=== PATIENT | female | born 1980 | race Caucasian/White ===

== ENCOUNTER 2017-05-27 16:09 | Emergency (ER) | payer MEDICAID ==
[2017-05-27] MEDS ORDERED: Sodium Chloride 0.9% 10 ML Syringe FLUSH PRN (16:35)
[2017-05-27] MEDS ORDERED: Ondansetron 4 MG/2 ML SDV IVPUSH ONE (16:35)
[2017-05-27] MEDS ORDERED: Morphine 2 MG/ML Syringe IVPUSH ONE ×2 (16:35→17:47)
--- NOTE | 2017-05-27 16:44 | EDM.PDOC ---
ED HPI GENERAL MEDICAL PROBLEM - General Time Seen by Provider: 05/27/17 16:20 Source of Information: Reports: Patient History Limitations: Reports: No Limitations - History of Present Illness INITIAL COMMENTS - FREE TEXT/NARRATIVE: Patient comes in the emergency department with a one-day history of severe onset of right lower flank pain radiating around to the front of the abdominal cavity. Patient also having urinary hesitancy and retention with some nausea. Patient does have a significant history of kidney stones and this feels like a kidney stone that she's had in the past. Symptoms are very similar. Denies any fever, chest pain, shortness of breath, incontinence, or any issues with bowel movements. Onset: Sudden Right Flank Pain Score (Numeric/FACES): 8 - Related Data Allergies Allergy/AdvReac Type Severity Reaction Status Date / Time ketorolac tromethamine Allergy Hives Verified 05/27/17 17:10 [From Toradol] naproxen Allergy Hives Verified 05/27/17 17:10 NSAIDS (Non-Steroidal Allergy Hives Verified 05/27/17 17:10 Anti-Inflamma Home Meds: Home Meds Acetaminophen/HYDROcodone [[place] 325-5 MG] 1 - 2 tab PO Q6H PRN #20 tab [Rx] Ondansetron [Zofran ODT] 4 mg PO Q6H PRN #4 tab.dis 10/01/13 [Rx] Penicillin V Potassium 500 mg PO Q6HR #40 tab 10/01/13 [Rx] Lidocaine HCl [Lidocaine HCl Viscous] 20 mg MM ASDIRECTED PRN #100 ml 10/03/13 [ Rx] Ondansetron [Zofran ODT] 4 mg PO Q6H PRN #10 tab.dis 10/03/13 [Rx] Ondansetron [Zofran ODT] 4 mg PO Q6H PRN #4 tab.dis 10/03/13 [Rx] oxyCODONE HCl/Acetaminophen [Percocet 5-325 mg Tablet] 1 each PO Q4HR PRN #20 tablet 10/03/13 [Rx] oxyCODONE HCl/Acetaminophen [Percocet 5-325 mg Tablet] 1 each PO Q4HR PRN #5 tablet 10/03/13 [Rx] Acetaminophen/oxyCODONE [Percocet 325-5 MG] 1 each PO Q6HR #4 tab 05/27/17 [Rx] Tamsulosin HCl [Flomax] 0.4 mg PO DAILY 5 Days #5 cap.er.24h 05/27/17 [Rx] Tamsulosin [Tamsulosin 24 Hr] 0.4 mg PO DAILY #1 cap.er 05/27/17 [Rx] oxyCODONE HCl/Acetaminophen [Percocet 10-325 mg Tablet] 1 each PO Q4H PRN 4 Days #15 tablet 05/27/17 [Rx] Social & Family History - Tobacco Use Years of Tobacco use: 5 - Alcohol Use Days Per Week of Alcohol Use: 0 - Recreational Drug Use Recreational Drug Use: No ED ROS GENERAL - Review of Systems Review Of Systems: See Below Constitutional: Reports: No Symptoms HEENT: Reports: No Symptoms Respiratory: Reports: No Symptoms Cardiovascular: Reports: No Symptoms GI/Abdominal: Reports: No Symptoms : Reports: Flank Pain, Hematuria, Pain Musculoskeletal: Reports: No Symptoms Skin: Reports: No Symptoms Neurological: Reports: No Symptoms Psychiatric: Reports: No Symptoms Hematologic/Lymphatic: Reports: No Symptoms Immunologic: Reports: No Symptoms ED EXAM, GI/ABD - Physical Exam Exam: See Below Exam Limited By: No Limitations General Appearance: Alert, WD/WN, No Apparent Distress Head: Atraumatic, Normocephalic Neck: Normal Inspection Respiratory/Chest: No Respiratory Distress, Lungs Clear, Normal Breath Sounds, Chest Non-Tender Cardiovascular: Normal Peripheral Pulses GI/Abdominal Exam: Normal Bowel Sounds, Soft, Non-Tender, No Distention, No Abnormal Bruit (Female) Exam: Normal External Exam Back Exam: Other (right flank pain ) Extremities: Normal Inspection, Normal Range of Motion Neurological: Alert, Oriented, Normal Gait Psychiatric: Normal Affect, Normal Mood Skin Exam: Warm, Dry, Intact, Normal Color Course - Vital Signs Last Recorded V/S: Last Vital Signs Temp 36.1 C 05/27/17 16:40 Pulse 94 05/27/17 18:30 Resp 18 05/27/17 18:30 BP 101/41 L 05/27/17 18:30 Pulse Ox 95 05/27/17 18:30 - Orders/Labs/Meds Orders: Active Orders 24 hr Category Date Time Status Abdomen wo Cont [CT] Stat Exams 05/27/17 16:36 Taken UA W/MICROSCOPIC [URIN] Stat Lab 05/27/17 17:02 Ordered Sodium Chloride 0.9% [Saline Flush] Med 05/27/17 16:35 Active 10 ml FLUSH ASDIRECTED PRN Peripheral IV Insertion Adult [OM.PC] Routine Oth 05/27/17 16:35 Ordered Medication Orders Sodium Chloride (Saline Flush) 10 ml FLUSH ASDIRECTED PRN PRN Reason: Keep Vein Open Last Admin: 05/27/17 16:54 Dose: 10 ml Labs: Laboratory Tests 05/27/17 05/27/17 05/27/17 Range/Units 16:58 16:58 17:02 WBC 11.0 H (4.0-10.0) x10^3/uL RBC 4.95 (4.00-5.50) x10^6/uL Hgb 14.5 (12.0-16.0) g/dL Hct 43.5 (33.0-47.0) % MCV 87.9 (78.0-93.0) fL MCH 29.3 (26.0-32.0) pg MCHC 33.3 (32.0-36.0) g/dL RDW Coeff of Michael 14.9 (10.0-15.0) % Plt Count 312 (130-400) x10^3/uL Neut % (Auto) 64.5 (50.0-80.0) % Lymph % (Auto) 25.0 (25.0-50.0) % Allen % (Auto) 8.4 (2.0-11.0) % Eos % (Auto) 1.8 (0.0-4.0) % Baso % (Auto) 0.3 (0.2-1.2) % Sodium 138 (136-145) mmol/L Potassium 4.1 (3.5-5.1) mmol/L Chloride 102 (98-107) mmol/L Carbon Dioxide 25 (21-32) mmol/L Anion Gap 15.1 BUN 15 (7-18) mg/dL Creatinine 1.0 (0.55-1.02) mg/dL Est Cr Clr Drug Dosing 66.51 mL/min Estimated GFR (MDRD) > 60 Glucose 102 (74-106) mg/dL Calcium 9.9 (8.5-10.1) mg/dL Corrected Calcium 9.82 (8.5-10.1) mg/dL Total Bilirubin 0.3 (0.2-1.0) mg/dL AST 17 (15-37) U/L ALT 29 (14-59) U/L Alkaline Phosphatase 114 (46-116) U/L Total Protein 8.1 (6.4-8.2) g/dL Albumin 4.1 (3.4-5.0) g/dL Globulin 4.0 Albumin/Globulin Ratio 1.03 Urine Color Yellow (YELLOW) Urine Appearance Cloudy H (CLEAR) Urine pH 5.0 (5.0-8.0) Ur Specific [place] >=1.030 Urine Protein 30 H (NEGATIVE) mg/dL Urine Glucose (UA) Negative (NEGATIVE) mg/dL Urine Ketones Negative (NEGATIVE) mg/dL Urine Occult Blood Trace-intact H (NEGATIVE) Urine Nitrite Negative (NEGATIVE) Urine Bilirubin Small H (NEGATIVE) Urine Urobilinogen 0.2 (0.2) EU/dL Ur Leukocyte Esterase Negative (NEGATIVE) Urine RBC 0-5 (NOT SEEN) /HPF Urine WBC 0-5 (NOT SEEN) /HPF Ur Squamous Epith Cells Many H (NEGATIVE) /HPF Urine Bacteria Rare (NEGATIVE) /HPF Urine Mucus Many H (NEGATIVE) /LPF Meds: Medications Generic Name Dose Route Start Last Admin Trade Name Freq PRN Reason Stop Dose Admin Sodium Chloride 10 ml 05/27/17 16:35 05/27/17 16:54 Saline Flush FLUSH 10 ml ASDIRECTED PRN Administration Keep Vein Open Discontinued Medications Generic Name Dose Route Start Last Admin Trade Name Freq PRN Reason Stop Dose Admin Lactated Ringer's 1,000 mls @ 1,000 mls/hr 05/27/17 17:26 05/27/17 17:44 Ringers, Lactated IV 05/27/17 18:25 1,000 mls/hr .BOLUS ONE Administration Morphine Sulfate 2 mg 05/27/17 16:35 05/27/17 16:52 Morphine IVPUSH 05/27/17 16:36 2 mg ONETIME ONE Administration Morphine Sulfate 2 mg 05/27/17 17:47 05/27/17 17:55 Morphine IVPUSH 05/27/17 17:48 2 mg ONETIME ONE Administration Ondansetron HCl 4 mg 05/27/17 16:35 05/27/17 16:50 Zofran IVPUSH 05/27/17 16:36 4 mg ONETIME ONE Administration Oxycodone/Acetaminophen Confirm 05/27/17 18:23 05/27/17 18:27 Percocet 325-5 Mg Administered 05/27/17 18:24 4 tab Dose Administration 4 tab .ROUTE .STK-MED ONE Tamsulosin HCl 0.4 mg 05/27/17 18:08 05/27/17 18:27 Flomax PO 05/27/17 18:09 0.4 mg ONETIME ONE Administration Tamsulosin HCl Confirm 05/27/17 18:23 05/27/17 18:26 Flomax Administered 05/27/17 18:24 0.4 mg Dose Administration 0.4 mg .ROUTE .STK-MED ONE Departure - Departure Time of Disposition: 18:45 Disposition: Home, Self-Care 01 Condition: Good Clinical Impression: Nephrolithiasis - Discharge Information Prescriptions: Acetaminophen/oxyCODONE [Percocet 325-5 MG] 1 each PO Q6HR #4 tab oxyCODONE HCl/Acetaminophen [Percocet 10-325 mg Tablet] 1 each PO Q4H PRN 4 Days #15 tablet PRN Reason: Pain (Moderate 4-6) Tamsulosin [Tamsulosin 24 Hr] 0.4 mg PO DAILY #1 cap.er Tamsulosin HCl [Flomax] 0.4 mg PO DAILY 5 Days #5 cap.er.24h Instructions: Kidney Stones, [id number], Tamsulosin capsules, Acetaminophen; Oxycodone tablets Referrals: Margarita Das DO [Primary Care Provider] - Additional Instructions: 1. Take medications as prescribed 2. Increase her water intake 3. Follow up with PCP in one week if not better 4. Decrease dietary fat protein and sodium intake - My Orders Last 24 Hours: My Active Orders 05/27/17 16:35 Sodium Chloride 0.9% [Saline Flush] 10 ml FLUSH ASDIRECTED PRN Peripheral IV Insertion Adult [OM.PC] Routine 05/27/17 16:36 Abdomen wo Cont [CT] Stat 05/27/17 17:02 UA W/MICROSCOPIC [URIN] Stat - Assessment/Plan Last 24 Hours: My Active Orders 05/27/17 16:35 Sodium Chloride 0.9% [Saline Flush] 10 ml FLUSH ASDIRECTED PRN Peripheral IV Insertion Adult [OM.PC] Routine 05/27/17 16:36 Abdomen wo Cont [CT] Stat 05/27/17 17:02 UA W/MICROSCOPIC [URIN] Stat Assessment:: 1. flank pain Plan: 1. IV started in ER 2. Pain medication given in the ER to help with the discomfort 3. CT scan ordered and results reviewed and discussed with the patient 4. Pt given flomax and percocet for pain relief. 5. Patient advised to follow up with PCP next week if not feeling better. 6. Patient given information regarding diet and medications that were provided in the emergency department today
[2017-05-27 17:24] LABS: CHLORIDE,CL 102 mmol/L (98-107); SODIUM,NA 138 mmol/L (136-145)
[2017-05-27] MEDS ORDERED: Lactated Ringers 1,000 ML IV ONE (17:26)
[2017-05-27] MEDS ORDERED: Tamsulosin 0.4 MG Cap.ER PO ONE (18:08)
[2017-05-27] MEDS ORDERED: Tamsulosin 0.4 MG Cap.ER ONE (18:23)
[2017-05-27] MEDS ORDERED: Acetaminophen/oxyCODONE 325-5 MG Tab ONE (18:23)
== END 2017-05-27 19:00 | disposition home or self-care (01) ==
LOC: VM.ED 16:09
DX: N20.0 Calculus of kidney (principal); Z88.6 Allergy status to analgesic agent; Z88.8 Allergy status to other drugs, medicaments and biological substances
CPT/HCPCS: 36415; 74150; 74176; 80053; 81001; 85025; 96365; 96375; 96376; 99284; A9270-GY; J2270; J2405; J7050; J7120

== ENCOUNTER 2017-05-28 21:07 | Emergency (ER) | payer MEDICAID ==
[2017-05-28] MEDS ORDERED: HYDROmorphone 1 MG/ML Syringe IM ONE (21:21)
[2017-05-28] MEDS ORDERED: Take Home: Acetaminophen/HYDROcodone 325-10 MG, 5 Tab Pack PO ONE (21:22)
--- NOTE | 2017-05-28 21:28 | EDM.PDOC ---
ED HPI GENERAL MEDICAL PROBLEM - General Chief Complaint: Flank Pain Stated Complaint: right flank pain Time Seen by Provider: 05/28/17 21:15 Source of Information: Reports: Patient History Limitations: Reports: No Limitations - History of Present Illness INITIAL COMMENTS - FREE TEXT/NARRATIVE: Patient was seen yesterday and diagnosed with kidney stones. She was started on flomax and given a take home pack for her pain. She is only here this evening because she has run out of her pain medications and is requesting additional as she was not able to get to a pharmacy to fill her prescriptions. Onset: Unknown/Unsure Duration: Constant Location: Reports: Abdomen, Other (right flank) Quality: Reports: Sharp Severity: Severe Improves with: Reports: Medication Worsens with: Reports: Movement Context: Reports: Activity Associated Symptoms: Reports: No Other Symptoms Right Flank Pain Score (Numeric/FACES): 10 - Related Data Allergies Allergy/AdvReac Type Severity Reaction Status Date / Time ketorolac tromethamine Allergy Hives Verified 05/28/17 21:18 [From Toradol] naproxen Allergy Hives Verified 05/28/17 21:18 NSAIDS (Non-Steroidal Allergy Hives Verified 05/28/17 21:18 Anti-Inflamma Home Meds: Home Meds Acetaminophen/oxyCODONE [Percocet 325-5 MG] 1 each PO Q6HR #4 tab 05/27/17 [Rx] Tamsulosin HCl [Flomax] 0.4 mg PO DAILY 5 Days #5 cap.er.24h 05/27/17 [Rx] Tamsulosin [Tamsulosin 24 Hr] 0.4 mg PO DAILY #1 cap.er 05/27/17 [Rx] Past Medical History Genitourinary History: Reports: Renal Calculus, Other (See Below) Other Genitourinary History: Lithotripsy for renal stones. - Past Surgical History GI Surgical History: Reports: Cholecystectomy Female Surgical History: Reports: Section, Hysterectomy Social & Family History - Tobacco Use Smoking Status *Q: Current Every Day Smoker Years of Tobacco use: 5 Packs/Tins Daily: 1 - Alcohol Use Days Per Week of Alcohol Use: 0 - Recreational Drug Use Recreational Drug Use: No ED ROS GENERAL - Review of Systems Review Of Systems: See Below Constitutional: Reports: No Symptoms HEENT: Reports: No Symptoms Respiratory: Reports: No Symptoms Cardiovascular: Reports: No Symptoms Endocrine: Reports: No Symptoms GI/Abdominal: Reports: No Symptoms : Reports: Flank Pain, Pain Musculoskeletal: Reports: No Symptoms Skin: Reports: No Symptoms Neurological: Reports: No Symptoms Psychiatric: Reports: No Symptoms Hematologic/Lymphatic: Reports: No Symptoms Immunologic: Reports: No Symptoms ED EXAM, RENAL/ - Physical Exam Exam: Not Obtained Course - Vital Signs Last Recorded V/S: Last Vital Signs Temp 37.2 C 05/28/17 21:14 Pulse 114 H 05/28/17 21:14 Resp 20 05/28/17 21:14 BP 143/88 H 05/28/17 21:14 Pulse Ox 100 05/28/17 21:14 - Orders/Labs/Meds Meds: Medications Discontinued Medications Generic Name Dose Route Start Last Admin Trade Name Esteban PRN Reason Stop Dose Admin Hydrocodone Bitart/Acetaminophen 1 packet 05/28/17 21:22 05/28/17 21:30 Take Home: Acetaminophen/Hydrocodone 325-10mg PO 05/28/17 21:23 1 packet ONETIME ONE Administration Hydromorphone HCl 1 mg 05/28/17 21:21 05/28/17 21:30 Dilaudid IM 05/28/17 21:22 1 mg ONETIME ONE Administration - Re-Assessments/Exams Free Text/Narrative Re-Assessment/Exam: 05/29/17 00:51 Patient reports no new problems. She is requesting additional take home medications to get her through until tomorrow when she will be able to fill her prescriptions. I did agree to do this with requesting that she follow up at the clinic for any additional problems. Departure - Departure Time of Disposition: 21:56 Disposition: Home, Self-Care 01 Condition: Good Clinical Impression: Nephrolithiasis - Discharge Information Instructions: Acetaminophen; Hydrocodone tablets or capsules, Kidney Stones, [id number], Flank Pain, [id number] Referrals: Margarita Das DO [Primary Care Provider] - Forms: ED Department Discharge
== END 2017-05-28 21:56 | disposition home or self-care (01) ==
LOC: VM.ED 21:07
DX: N20.0 Calculus of kidney (principal); F17.210 Nicotine dependence, cigarettes, uncomplicated; Z88.6 Allergy status to analgesic agent; Z88.8 Allergy status to other drugs, medicaments and biological substances; Z79.899 Other long term (current) drug therapy
CPT/HCPCS: 99284; A9270-GY; J1170